=== PATIENT | female | born 1990 | race Caucasian/White ===

== ENCOUNTER 2019-04-21 22:06 | Emergency (ER) | payer OTHER, SELFPAY ==
[2019-04-21 22:15] VITALS: BP 127/72; PULSE 81; RESP 20; TEMP 36.8; O2SAT 99
--- NOTE | 2019-04-22 00:15 | ED.GENADULT ---
HPI - General Adult General Chief complaint: Vaginal Bleeding Stated complaint: pelvic pain, abnormal bleeding Time Seen by Provider: 04/22/19 00:15 Source: patient Mode of arrival: Ambulatory Limitations: no limitations History of Present Illness HPI narrative: 28-year-old woman presents with a single 2-3 hour episode of red vaginal bleeding mid cycle. She states that she and her partner currently use condoms and she follows fertile mucous testing to avoid intercourse during ovulation. She states she is approximately a week from ovulation. She has never had midcycle bleeding. She recently had an abnormal Pap smear and is concerned about cervical cancers. She had a well-woman exam about a month ago and was told that all was healthy. She has had no new partners, no vaginal discharge she is having no pain, no cramping and bleeding has entirely resolved. It consisted of small amount of red blood on her underwear some in the toilet and some with wiping. No clots. She has had no fever, chills, abdominal pain and last menses was approximately 2 weeks ago. Related Data Home Medications Medication Instructions Recorded Confirmed cetirizine [Zyrtec] 10 mg PO BEDTIME 04/21/19 04/21/19 escitalopram oxalate 20 mg PO BEDTIME 04/21/19 04/21/19 Allergies Allergy/AdvReac Type Severity Reaction Status Date / Time amoxicillin Allergy Unknown Verified 04/21/19 22:32 Review of Systems Review of Systems Narrative: All systems reviewed and are unremarkable except as noted in HPI and below Patient History Social History Smoking Status: Current every day smoker Smoking Status: Current every day smoker alcohol intake frequency: 0-2 drinks per day Substance Use Type: does not use Exam Narrative Exam Narrative: General: Alert appropriate in no acute distress Respiratory: Able to speak in full sentences, no obvious respiratory distress Skin: No obvious rashes, warm and dry Neurologic: Grossly intact no obvious asymmetries or abnormalities Psych, appropriate insight and affect, cooperative Initial Vital Signs Initial Vital Signs: Vital Signs Temperature 98.3 F 04/21/19 22:15 Pulse Rate 81 04/21/19 22:15 Respiratory Rate 20 04/21/19 22:15 Blood Pressure 127/72 04/21/19 22:15 Pulse Oximetry 99 04/21/19 22:15 Course Vital Signs Vital signs: Vital Signs - 8 hr 02/27/20 22:15 04/22/19 00:29 Temperature 98.3 F Pulse Rate 81 85 Respiratory Rate 20 17 Blood Pressure 127/72 Blood Pressure [Left Arm] 125/85 Pulse Oximetry 99 98 Medical Decision Making Medical Records Medical records reviewed: Yes I reviewed the patient's medical records. Lab Data Labs: Point of Care Testing Test Results Negative Urine Dip Bedside Urine Glucose Negative Bedside Urine Bilirubin - Negative Bedside Urine Ketone - Negative Urine Specific [place] 1.020 Bedside Urine Occult Blood + Bedside Urine pH 5.5 Bedside Urine Protein - Negative Bedside Urine Urobilinogen - Negative Bedside Urine Nitrite - Negative Bedside Urine Leukocytes - Negative Esterase Point of care testing: Point of Care Testing Test Results Negative Urine Dip Bedside Urine Glucose Negative Bedside Urine Bilirubin - Negative Bedside Urine Ketone - Negative Urine Specific [place] 1.020 Bedside Urine Occult Blood + Bedside Urine pH 5.5 Bedside Urine Protein - Negative Bedside Urine Urobilinogen - Negative Bedside Urine Nitrite - Negative Bedside Urine Leukocytes - Negative Esterase MDM Narrative Medical decision making narrative: Brief midcycle vaginal spotting in the absence of . Reassurance is given. She will follow-up with her primary care physician should she have recurrent episodes. Discharge Plan Departure Patient Disposition: Home Clinical Impression: Vaginal bleeding Discharge Date/Time: 04/22/19 00:48 Instructions: DI for Vaginal Bleeding Activity Restrictions/Additional Instructions: Thank you for coming in today I certainly understand her concern with the vaginal bleeding that you had the lasted for about 3 hours this evening. I am glad to recognize that has stopped. This sounds very much like midcycle bleeding and frequently can be related to ovulation. There are times when we simply do not have a good explanation but can be reassured that there is no significant pathology. You are not so the possibility of an ectopic is ruled out. The fact that you had a well-woman exam recently rules out significant endometrial pathology. 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 Frequently this will resolve spontaneously and will go on to have a regular period at your normal time. If you have recurrent bleeding please follow-up with your OBGYN. Thank you for being patient and waiting today. Prescriptions: No Action escitalopram oxalate 20 mg tablet 20 mg PO BEDTIME RF: 0 Zyrtec 10 mg Capsule 10 mg PO BEDTIME RF: 0
[2019-04-22 00:29] VITALS: BP 125/85; PULSE 85; RESP 17; O2SAT 98
== END 2019-04-22 00:48 | disposition home or self-care (01) ==
PROVIDERS: Emergency Provider Emergency Medicine
DX: N93.9 Abnormal uterine and vaginal bleeding, unspecified (principal); R10.2 Pelvic and perineal pain
CPT/HCPCS: 81003; 81025; 99282